=== PATIENT | male | born 1975 | race Hispanic/Latino ===

== ENCOUNTER 2020-08-26 08:18 | Emergency (ER) | payer OTHER ==
[~2020-08-26] VITALS: Ht 170.2 cm; Wt 88.5 kg
[2020-08-26 08:20] VITALS: BP 136/80
[2020-08-26] MEDS ORDERED: TORADOL IM STA (08:35)
[2020-08-26 08:37] LABS: APPEARANCE,URINE CLEAR (CLEAR); BILIRUBIN,URINE NEGATIVE (NEGATIVE); UA COLOR YELLOW (YELLOW)
[2020-08-26 08:38] LABS: UROBILINOGEN,URINE NEGATIVE (NEGATIVE)
[2020-08-26] MEDS ORDERED: TORADOL ONE (08:41)
--- NOTE | 2020-08-26 08:43 | ER.PDOC ---
General Chief Complaint: Lower Back Pain or Injury Stated Complaint: BACK PAIN Time seen by MD: 08:30 Source: patient Exam Limitations: no limitations (patient speaks slovak but came with cut tobacco bulker) History of Present Illness Initial Comments Patient with 1 week left flank pain and dysuria. Pain is sharp and currently 6/10. It radiates to his left groin. No hematuria. He does endorse urinary frequency. No nausea or vomiting. No fever. Nml BMs. No trauma. No meds taken WHE[employer]. No pain with bending or twisting. No hx of UTI or kidney stones Past Medical History Medical History: no pertinent history Surgical History: no surgical history Social History Alcohol Use: occassionally Drug Use: none Reviewed Nursing Reviewed: Vital Signs, Abn. Noted, Nursing Assessment Review of Systems Constitutional: no symptoms reported EENTM: no symptoms reported Respiratory: no symptoms reported Cardiovascular: no symptoms reported Gastrointestinal: see HPI Genitourinary: see HPI Musculoskeletal: see HPI Skin: no symptoms reported Psychiatric/Neurological: no symptoms reported All Other Systems: Reviewed and Negative Physical Exam General Appearance: No Apparent Distress, WD/WN Neck: Non-Tender, Normal Inspection Cardiovascular/Respiratory: Regular Rate, Rhythm, No M/R/G, Normal Peripheral Pulses Gastrointestinal: Normal Bowel Sounds, No Pulsatile Mass, Non Tender, Soft Back: Normal Inspection, No CVA Tenderness, No Vertebral Tenderness Extremities: No Evidence of Injury, Normal Range of Motion, Non-Tender Neuro/Psych: Alert, mood/effect nml, No Motor/Sensory Deficits, Relexes nml Skin: Normal Color, Warm/Dry Results/Orders Results/Orders Orders - YOLI WAGONER MD Urinalysis (08/26/20 08:29) Ct Abd/Pelvis Wo Iv Contrast (08/26/20 08:35) Ketorolac Tromethamine (Toradol) (08/26/20 08:35) Ketorolac Tromethamine (Toradol) (08/26/20 08:41) Cbc With Auto Diff (08/26/20 08:44) Comprehensive Metabolic Panel (08/26/20 08:44) Chlamydia/Gcamplification(Ref) (08/26/20 09:47) Ceftriaxone Sodium (Rocephin) (08/26/20 09:47) Azithromycin (Zithromax) (08/26/20 09:47) Vital Signs Date Time Temp Pulse Resp B/P (MAP) Pulse Ox O2 Delivery O2 Flow Rate FiO2 08/26/20 08:20 98.1 93 16 94 08/26/20 08:20 98.1 93 16 08/26/20 08:20 98.1 93 16 136/80 (98) 94 Room Air Administered Medications Medications (Trade) Dose Ordered Sig/Pilar Route PRN Reason Start Time Stop Time Status Last Admin Dose Admin Ketorolac Tromethamine (Toradol) 60 mg STAT STAT IM 08/26/20 08:35 08/26/20 08:39 DC 08/26/20 08:44 60 MG Laboratory Tests Test 08/26/20 08:32 08/26/20 08:50 Urine Collection Type CCMS Urine Color YELLOW (YELLOW) Urine Appearance CLEAR (CLEAR) Urine Bilirubin NEGATIVE MG/DL (NEGATIVE) Urine Ketones NEGATIVE (NEGATIVE) Urine Specific [place] 1.020 (1.005-1.035) Urine pH 7.0 (5.0-6.0) Urine Protein NEGATIVE (NEGATIVE) Urine Urobilinogen NEGATIVE (NEGATIVE) Urine Nitrate NEGATIVE (NEGATAIVE) Urine Leukocyte Esterase NEGATIVE (NEGATIVE) Urine Blood NEGATIVE (NEGATIVE) Urine Glucose NORMAL (NEGATIVE) White Blood Count 5.4 10^3/uL (4.5-11.0) Red Blood Count 5.58 10^6/uL (4.50-5.90) Hemoglobin 17.6 g/dL (13.9-16.3) H Hematocrit 47.5 % (37.0-53.0) Mean Corpuscular Volume 85.1 fL (78-100) Mean Corpuscular Hemoglobin 31.5 pg (26-34) Mean Corpuscular Hemoglobin Concent 37.1 g/dL (33-36.5) H Red Cell Distribution Width 12.1 % (11.5-14.5) Platelet Count 217 10^3/uL (150-400) Mean Platelet Volume 10.8 fL (7.8-11.0) Neutrophils (%) (Auto) 54.8 % (41.0-85.0) Lymphocytes (%) (Auto) 31.4 % (24.0-44.0) Monocytes (%) (Auto) 7.4 % (5.0-12.0) Neutrophils # (Auto) 3.0 10^3/uL (1.8-7.7) Lymphocytes # (Auto) 1.70 10^3/uL1 (1.0-4.8) Monocytes # (Auto) 0.4 10^3/uL (0.3-0.8) Absolute Immature Granulocyte (auto 0.01 10^3 u/L (0-2) Absolute Eosinophils (auto) 0.3 10^3/uL (0.0-0.2) H Immature Granulocytes % 0.20 % (0.00-0.50) Eosinophils % 5.5 % (0.0-5.0) H Basophils % 0.7 % (0.0-0.2) H Basophils # 0.0 10^3/uL (0.0-0.1) Sodium Level 141 mmol/L (132-145) Potassium Level 3.8 mmol/L (3.6-5.2) Chloride Level 103.0 mmol/L (96-109) Carbon Dioxide Level 29.1 mmol/L (20.0-32) Anion Gap 12.7 Blood Urea Nitrogen 15 mg/dL (7-18) Creatinine 0.84 mg/dL (0.59-1.40) Estimated GFR () 120.7 (>/=60) Est GFR (CKD-EPI)(Non-Afr [place]) 99.7 (>/=60) BUN/Creatinine Ratio 17.0 Glucose Level 100 mg/dL (70-110) Calcium Level 8.8 mg/dL (8.4-10.5) Total Bilirubin 1.5 mg/dL (0.2-1.0) H Aspartate Amino Transferase (AST) 35 U/L (0-35) Alanine Aminotransferase (ALT) 64 U/L (12-78) Alkaline Phosphatase 69 U/L (50-136) Total Protein 7.6 g/dL (6.4-8.2) Albumin 4.1 g/dL (3.4-5.0) Globulin 3.5 Albumin/Globulin Ratio 1.171 Progress Progress The patients labs and imaging are unremarkable other than mildly elevated bilirubin with other LFTs nml. He has no abdominal tenderness on repeat exam. He reports back pain is improved with the toradol. Given his complaints and nml work up STI questions were asked. He does admit to recent unprotected sex with "one night stand". He does now admit to penile discharge and concern for STD. He will be treated empirically with rocephin and azithro. He was counselled on safe sex practice. If symptoms persist despite tx he should follow up with PCP or return to ED. He states understanding and all questions were addressed ER DEPART Departure Time of Disposition: 09:53 Disposition: 01 HOME, SELF-CARE Impression: Primary Impression: Left flank pain Additional Impression: Possible exposure to STD Condition: Improved Referrals: PCP,UNKNOWN (PCP) PRIMARY CARE PROVIDER Duration or Time Spent with Pa: 20 Problem Qualifiers YOLI WAGONER MD Aug 26, 2020 08:43
[2020-08-26 08:55] LABS: BASOPHIL % 0.7 % (0.0-0.2); EOSINOPHIL # 0.3 10^3/uL (0.0-0.2); EOSINOPHIL % 5.5 % (0.0-5.0); LYMPHOCYTES % 31.4 % (24.0-44.0); MEAN CORP HGB 31.5 pg (26-34); MONOCYTES # 0.4 10^3/uL (0.3-0.8); MONOCYTES % 7.4 % (5.0-12.0); NEUTROPHILS % 54.8 % (41.0-85.0); PLATELET COUNT 217 10^3/uL (150-400); RED CELL DISTRIBUTION WIDTH 12.1 % (11.5-14.5)
[2020-08-26 09:13] LABS: CALCIUM 8.8 mg/dL (8.4-10.5); CARBON DIOXIDE 29.1 mmol/L (20.0-32)
--- NOTE | 2020-08-26 09:36 | DIREP ---
PROCEDURE:CT ABDOMEN/PELVIS W/O CONTRAST COMPARISON:None. INDICATIONS:left flank pain TECHNIQUE:Axial images were created through the abdomen and pelvis without intravenous contrast material. No oral contrast was administered. Sagittal and coronal reconstructions were performed from source images. FINDINGS: LUNG BASES:Normal. No visible pulmonary or pleural disease. LIVER:Normal. No significant liver lesions are identified. BILIARY:Normal. No visible dilatation or calcification. PANCREAS:Normal. No lesion, fluid collection, ductal dilatation, or atrophy. SPLEEN:Normal. No enlargement or focal lesion. ADRENALS:Normal. No mass or enlargement. URINARY TRACT:Normal. No focal lesions or hydronephrosis. No stones are identified. AORTA/VASCULAR:Normal. No aneurysm. RETROPERITONEUM:Normal. No mass or adenopathy. BOWEL/MESENTERY:The appendix is visualized and appears normal. There is no intestinal obstruction, free fluid, free air or mesenteric inflammatory changes. ABDOMINAL WALL:Normal. No mass or hernia. PELVIC ORGANS:Normal. No visible mass. Pelvic organs appropriate for patient age. BONES:Normal for age. No bony lesion or acute fracture. OTHER:Negative. CONCLUSION:Normal examination. Dictated by: Marcos Dial MD on 08/26/2020 at 09:32 AM
[2020-08-26] MEDS ORDERED: ROCEPHIN 250 MG in NS 100ML 10 ML IM STA (09:47)
[2020-08-26] MEDS ORDERED: ZITHROMAX PO STA (09:47)
[2020-08-26] MEDS ORDERED: LIDOCAINE 1% VIAL ONE (09:54)
[2020-08-26] MEDS ORDERED: ROCEPHIN ONE (09:54)
[2020-08-26] MEDS ORDERED: ZITHROMAX ONE (09:55)
[2020-08-26 10:08] VITALS: BP 122/76
== END 2020-08-26 10:08 | disposition home or self-care (01) ==
LOC: ER 08:18
DX: R10.9 Unspecified abdominal pain (principal); Z79.1 Long term (current) use of non-steroidal anti-inflammatories (NSAID)
CPT/HCPCS: 36415; 74176; 80053; 81003; 85025; 87491; 87591; 96372; 99284; J0696 ×2; J1885; J2001; J7050; Q0144